=== PATIENT | male | born 1955 | race African-American/Black ===

== ENCOUNTER 2020-03-23 15:13 | Observation (INO) ==
[2020-03-23 15:59] LABS: Basophils % 0.4 %; Eosinophils # 0.4 K/mcL (0.0-0.6); Eosinophils % 3.8 %; Hematocrit 45.1 % (37.5-50.1); Hemoglobin 14.9 g/dL (12.9-16.9); Immature Granulocytes % 0.5 % (0-4); Lymphocytes # 2.2 K/mcL (0.6-4.6); Lymphocytes % 22.5 %; Mean Corpuscular Hemoglobin 30.2 pg (28.0-33.3); Mean Corpuscular Volume 91.3 fL (83.0-100.0); Mean Platelet Volume 10.3 fL (9.4-12.4); Monocytes # 0.9 K/mcL (0.0-1.3); Monocytes % 9.5 %; Neutrophils # 6.3 K/mcL (1.6-8.9); Platelet Count 299 K/mcL (140-400); Red Blood Count 4.94 M/mcL (4.19-5.50); Red Cell Distribution Width 12.8 % (11.5-14.5); Segmented Neutrophils % 63.3 %; White Blood Count 9.9 K/mcL (4.3-11.1)
[2020-03-23 16:02] LABS: INR 1.2; Prothrombin Time 13.4 Seconds (9.4-12.1)
[2020-03-23 16:05] LABS: Activated Partial Thrombo Time 30.1 Seconds (26.0-36.0)
[2020-03-23] MEDS ORDERED: Morphine Sulfate 2 MG/ML SYRINGE IVP ONE (16:08)
[2020-03-23] MEDS ORDERED: 0.9 % Sodium Chloride 1,000 ML IVC SCH (16:15)
[2020-03-23 16:22] LABS: Alanine Aminotransferase 14 Units/L (7-52); Albumin 4.1 g/dL (3.5-5.7); Albumin/Globulin Ratio 1.2 (1.1-2.2); Alkaline Phosphatase 75 Units/L (34-104); Aspartate Amino Transferase 14 Units/L (13-39); BUN/Creatinine Ratio 17 (6-26); Bilirubin,Direct 0.2 mg/dL (0.0-0.2); Bilirubin,Indirect 0.5 mg/dL (0.0-1.0); Bilirubin,Total 0.7 mg/dL (0.3-1.0); Blood Urea Nitrogen 21 mg/dL (8-23); Calcium 9.3 mg/dL (8.6-10.3); Carbon Dioxide 25 mEq/L (23-29); Chloride 106 mEq/L (98-107); Globulin 3.4 g/dL (2.4-3.5); Glucose 109 mg/dL (70-105); Lipase 34 Units/L (11-82); Magnesium 2.3 mg/dL (1.6-2.6); Osmolality,Calculated 292 (280-300); Potassium 3.3 mEq/L (3.5-5.1); Sodium 139 mEq/L (136-145); Total Protein 7.5 g/dL (6.4-8.9); Troponin I < 0.03 ng/mL (< 0.04); eGFR For African Americans > 60 (> 60); eGFR For Non-African Americans 57 (> 60)
[2020-03-23 17:11] LABS: Bilirubin,Urine Small (Negative); Blood,Urine Negative (Negative); Clarity,Urine Cloudy (Clear); Color,Urine Yellow (Yellow); Glucose,Urine (UA) Normal (Normal); Ketones,Urine Trace mg/dL (Negative); Leukocyte Esterase,Urine Large (Negative); Nitrite,Urine Negative (Negative); Protein,Urine Trace mg/dL (Neg-Trace); Specific Gravity,Urine 1.028 (1.010-1.025)
[2020-03-23 17:17] LABS: Hyaline Casts,Urine None Seen per lpf (None-Few)
[2020-03-23 17:38] LABS: Squamous Epithelial Cell,Urine Few per lpf (None-Few)
[2020-03-23 17:39] LABS: Bacteria,Urine Moderate per hpf (None-Few); RBC,Urine 0-3 per hpf (0-3); WBC,Urine 30-50 per hpf (0-3)
[2020-03-23] MEDS ORDERED: cephALEXin 250 MG CAPSULE PO ONE (18:15)
[2020-03-23] MEDS ORDERED: Naloxone 0.4 MG/ML INJ IVP PRN (20:48)
[2020-03-23] MEDS ORDERED: 0.9 % Sodium Chloride 1,000 ML IVC ONE (20:51)
[2020-03-23] MEDS ORDERED: Potassium Chloride Elixir 20 MEQ/15 ML UDC PO ONE (20:52)
[2020-03-24 01:51] LABS: Hematocrit 44.6 % (37.5-50.1); Hemoglobin 14.4 g/dL (12.9-16.9); Mean Corpuscular HGB Conc 32.3 g/dL (31.6-35.5); Mean Corpuscular Hemoglobin 30.3 pg (28.0-33.3); Mean Corpuscular Volume 93.9 fL (83.0-100.0); Platelet Count 289 K/mcL (140-400); Red Blood Count 4.75 M/mcL (4.19-5.50); Red Cell Distribution Width 12.8 % (11.5-14.5)
[2020-03-24 02:12] LABS: BUN/Creatinine Ratio 17 (6-26); Blood Urea Nitrogen 21 mg/dL (8-23); Calcium 9.1 mg/dL (8.6-10.3); Carbon Dioxide 24 mEq/L (23-29); Chloride 107 mEq/L (98-107); Glucose 106 mg/dL (70-105); Osmolality,Calculated 289 (280-300); Potassium 3.8 mEq/L (3.5-5.1); Sodium 138 mEq/L (136-145); eGFR For African Americans > 60 (> 60); eGFR For Non-African Americans 58 (> 60)
[2020-03-24] MEDS: levETIRAcetam 250 MG TABLET PO SCH ×2 (08:50→22:12)
[2020-03-24] MEDS: cephALEXin 500 MG CAPSULE PO SCH ×2 (08:50→22:13)
[2020-03-24] MEDS: Aspirin Enteric Coated 81 MG Tablet PO SCH (08:50)
[2020-03-24] MEDS: carvediloL 6.25 MG TABLET PO SCH ×2 (08:58→18:00)
[2020-03-24] MEDS: Sennosides/Docusate Sodium TABLET PO SCH ×2 (09:59→22:14)
[2020-03-24] MEDS: polyethylene glycoL 3350 17 GM POWD.PACK PO SCH (09:59)
[2020-03-24] MEDS: *HR* Heparin 5,000 UNIT/ML VIAL SQ SCH (18:00)
[2020-03-24] MEDS ORDERED: traZODone 50 MG TABLET PO SCH (21:00)
[2020-03-25] MEDS: *HR* Heparin 5,000 UNIT/ML VIAL SQ SCH (06:48)
[2020-03-25] MEDS ORDERED: *HR* OxyCODONE/APAP 5/325 TABLET PO PRN (07:19)
[2020-03-25] MEDS: Sennosides/Docusate Sodium TABLET PO SCH (08:06)
[2020-03-25] MEDS: carvediloL 6.25 MG TABLET PO SCH ×2 (08:06→17:53)
[2020-03-25] MEDS: Aspirin Enteric Coated 81 MG Tablet PO SCH (08:06)
[2020-03-25] MEDS: polyethylene glycoL 3350 17 GM POWD.PACK PO SCH (08:06)
[2020-03-25] MEDS: levETIRAcetam 250 MG TABLET PO SCH (08:06)
[2020-03-25] MEDS ORDERED: amLODIPine 5 MG TABLET PO SCH (09:00)
[2020-03-25 14:22] VITALS: BP 116/71
== END 2020-03-25 18:18 ==
LOC: 3ANU 15:13 → EMEROOARM 15:13 → SUATTDRO 18:24 → 3ANU 20:07
PROVIDERS: ADMIT Internal Medicine; ATTEND Family Medicine